=== PATIENT | male | born 1960 | race African-American/Black ===

== ENCOUNTER 2022-05-09 05:24 | Day surgery (SDC) | payer OTHER ==
[2022-05-05 15:56] VITALS: BMI 32.9
[2022-05-09 11:26] VITALS: RESP 20
[2022-05-09] MEDS ORDERED: KETOROLAC TROMETHAMINE 30 MG/1 ML VIAL ONE (12:11)
[2022-05-09] MEDS ORDERED: MIDAZOLAM HCL 2 MG/2 ML SINGLE DOSE VIAL ONE (12:12)
[2022-05-09] MEDS ORDERED: PROPOFOL 20 ML ONE (12:12)
[2022-05-09 14:12] VITALS: TEMP 97.8
[2022-05-09 15:35] VITALS: BP 120/78; PULSE 70
== END 2022-05-09 15:00 | disposition home or self-care (01) ==
LOC: JASU-SURG 05:24
PROVIDERS: ATTEND Urology
PROC: 0TF4XZZ Fragmentation in Left Kidney Pelvis, External Approach (ICD-10-PCS; principal; 2022-05-09 12:37)
DX: N20.0 Calculus of kidney (principal)
CPT/HCPCS: 82962